=== PATIENT | female | born 1965 | race Hispanic/Latino ===

== ENCOUNTER 2017-01-29 17:13 | Emergency (ER) | payer OTHER ==
[~2017-01-29] VITALS: Ht 162.6 cm; Wt 104.5 kg
[~2017-01-29 17:13] MED LIST: ALBUTEROL17 G1 IH; ATENOLOL25 MG PO; FLEXERIL10 MG PO; FLOVENT DISKUS1 DISK IH; LEVEMIR100 UNIT/2 SC; LO-DOSE ASPIRIN81 M1 PO; LOSARTAN POTAS100 MG PO; NAPROSYN500 MG PO; PRILOSEC40 MG PO; PROAIR HFA8.5 GM IH; PROVENTIL,200 INHALA IH; ULTRACET1 TABLET PO; VALIUM5 MG PO; XANAX0.5 MG PO
[2017-01-29 18:14] LABS: MCH 26.2 PG (29.0-34.0); MCHC 32.2 G/DL (30.0-36.0); MCV 81.3 FL (83-99); MEAN PLAT.VOLUME 12.2 uM^3 (9.5-12.4); PLATELET COUNT 194 K/uL (156-360); RBC DIS.WIDTH-CV 13.8 % (11.8-14.6); RBC DIS.WIDTH-SD 41.4 % (39-53); RED BLOOD COUNT 4.43 M/uL (3.80-5.20); WHITE BLOOD COUNT 7.8 K/uL (4.1-10.2)
[2017-01-29 18:21] LABS: CHLORIDE 107 mEq/L (99-109); POTASSIUM 4.4 mEq/L (3.7-5.4); SODIUM 140 mEq/L (136-147)
[2017-01-29 18:22] LABS: GLUCOSE 112 mg/dL (70-99)
[2017-01-29 18:24] LABS: ANION GAP 7 MEQ/L (2-14)
[2017-01-29 18:26] LABS: GFR ESTIMATE (CALCULATED) > 59 mL/min/
[2017-01-29 18:27] LABS: UREA NITROGEN (BUN) 16 mg/dL (9-23)
[2017-01-29 18:32] LABS: TROP-I INTERPRETATION NEGATIVE; TROPONIN-I < 0.01 ng/mL (0.0-0.30)
[2017-01-29] MEDS ORDERED: TENORMIN25 MG PO (21:08)
[2017-01-29] MEDS ORDERED: HUMALOG MI100 UNIT/1 SC (21:08)
[2017-01-29 21:11] LABS: TROP-I INTERPRETATION NEGATIVE; TROPONIN-I < 0.01 ng/mL (0.0-0.30)
[2017-01-29 22:12] VITALS: BP 152/83
== END 2017-01-29 22:24 | disposition left against medical advice (07) ==
LOC: EME 17:13
PROVIDERS: Physician Assistant Medical
DX: R07.89 Other chest pain (principal); I10 Essential (primary) hypertension; E11.9 Type 2 diabetes mellitus without complications; J45.909 Unspecified asthma, uncomplicated; Z87.442 Personal history of urinary calculi; Z91.040 Latex allergy status; Z88.8 Allergy status to other drugs, medicaments and biological substances; Z88.5 Allergy status to narcotic agent; Z88.6 Allergy status to analgesic agent
CPT/HCPCS: 71020; 80048; 84484; 85027; 93005; 99281; 99284

== ENCOUNTER → 2017-02-17 | Day surgery (SDC) | payer OTHER ==
[~2017-02-17] VITALS: Ht 162.6 cm; Wt 103.0 kg
[~2017-02-17] MED LIST changes: +HUMALOG MI100 UNIT/1 SC; +LO-DOSE ASPIRIN81 M2 PO; +PRAVACHOL20 MG PO; +PREVACID15 MG PO; +TENORMIN25 MG PO; +VITAMIN C1000 MG PO
[2017-02-17 10:37] LABS: POINT-OF-CARE METER ID UU13113696
[2017-02-17 10:46] LABS: POINT-OF-CARE METER ID UU13113696
[2017-02-17 11:09] LABS: POINT-OF-CARE METER ID UU13113696
[2017-02-17 13:26] LABS: POINT-OF-CARE METER ID UU13113819
== END | disposition home or self-care (01) ==
LOC: CATH 09:42
PROVIDERS: Internal Medicine Cardiovascular Disease
PROC: B2151ZZ Fluoroscopy of Left Heart using Low Osmolar Contrast (ICD-10-PCS; principal; 2017-02-17)
PROC: B2111ZZ Fluoroscopy of Multiple Coronary Arteries using Low Osmolar Contrast (ICD-10-PCS; principal; 2017-02-17)
PROC: 4A023N7 Measurement of Cardiac Sampling and Pressure, Left Heart, Percutaneous Approach (ICD-10-PCS; principal; 2017-02-17)
DX: I25.10 Atherosclerotic heart disease of native coronary artery without angina pectoris (principal); I10 Essential (primary) hypertension; E11.9 Type 2 diabetes mellitus without complications; I44.7 Left bundle-branch block, unspecified; E66.01 Morbid (severe) obesity due to excess calories; Z68.41 Body mass index [BMI] 40.0-44.9, adult; Z79.4 Long term (current) use of insulin; Z82.49 Family history of ischemic heart disease and other diseases of the circulatory system
CPT/HCPCS: 82948; C1769; C1887; J1644; J2250; J3010

== ENCOUNTER 2017-04-04 14:20 | Emergency (ER) | payer OTHER ==
[~2017-04-04] VITALS: Ht 162.6 cm; Wt 101.0 kg
[2017-04-04] MEDS ORDERED: VALIUM5 MG PO (19:30)
[2017-04-04] MEDS ORDERED: INDOCIN50 MG PO (19:30)
[2017-04-04] MEDS ORDERED: ULTRACET1 TABLET PO (19:33)
[2017-04-04 20:25] VITALS: BP 140/82
== END 2017-04-04 20:25 | disposition home or self-care (01) ==
LOC: EME 14:20
DX: S16.1XXA Strain of muscle, fascia and tendon at neck level, initial encounter (principal); S46.001A Unspecified injury of muscle(s) and tendon(s) of the rotator cuff of right shoulder, initial encounter; S46.211A Strain of muscle, fascia and tendon of other parts of biceps, right arm, initial encounter; M54.12 Radiculopathy, cervical region; X58.XXXA Exposure to other specified factors, initial encounter; Y93.E5 Activity, floor mopping and cleaning; I44.7 Left bundle-branch block, unspecified; I10 Essential (primary) hypertension; E78.5 Hyperlipidemia, unspecified; J45.909 Unspecified asthma, uncomplicated; E11.9 Type 2 diabetes mellitus without complications; Z79.4 Long term (current) use of insulin; Z79.82 Long term (current) use of aspirin
CPT/HCPCS: 93005; 93971; 99281; 99284; J1885; J3010

== ENCOUNTER 2017-05-28 22:17 | Emergency (ER) | payer OTHER ==
[~2017-05-28] VITALS: Ht 162.6 cm; Wt 106.0 kg
[~2017-05-28 22:17] MED LIST changes: +INDOCIN50 MG PO
[2017-05-28 23:02] LABS: HEMATOCRIT 34.2 % (36.0-46.0); MCH 26.6 PG (29.0-34.0); MCHC 32.5 G/DL (30.0-36.0); MCV 81.8 FL (83-99); MEAN PLAT.VOLUME 12.1 uM^3 (9.5-12.4); PLATELET COUNT 181 K/uL (156-360); RBC DIS.WIDTH-CV 14.2 % (11.8-14.6); RBC DIS.WIDTH-SD 42.3 % (39-53); RED BLOOD COUNT 4.18 M/uL (3.80-5.20); WHITE BLOOD COUNT 9.7 K/uL (4.1-10.2)
[2017-05-28 23:11] LABS: CHLORIDE 107 mEq/L (99-109); POTASSIUM 3.6 mEq/L (3.7-5.4); SODIUM 140 mEq/L (136-147)
[2017-05-28 23:13] LABS: GLUCOSE 159 mg/dL (70-99)
[2017-05-28 23:14] LABS: ANION GAP 9 MEQ/L (2-14)
[2017-05-28 23:17] LABS: GFR ESTIMATE (CALCULATED) > 59 mL/min/
[2017-05-28 23:18] LABS: UREA NITROGEN (BUN) 20 mg/dL (9-23)
[2017-05-28 23:25] LABS: TROP-I INTERPRETATION NEGATIVE; TROPONIN-I < 0.01 ng/mL (0.0-0.30)
[2017-05-28 23:47] LABS: D-DIMER ELISA < 150.00 ng/mLDDU (<230)
[2017-05-29] MEDS ORDERED: NAPROSYN500 MG PO (00:24)
[2017-05-29] MEDS ORDERED: PROVENTIL HFA6.7 GM IH (00:24)
[2017-05-29 00:42] VITALS: BP 180/76
== END 2017-05-29 00:43 | disposition home or self-care (01) ==
LOC: RME 22:17 → EME 22:17 → RME 05-29 00:43
PROVIDERS: Emergency Medicine
DX: R07.9 Chest pain, unspecified (principal); R09.1 Pleurisy; M54.9 Dorsalgia, unspecified; J45.909 Unspecified asthma, uncomplicated; E11.9 Type 2 diabetes mellitus without complications; I10 Essential (primary) hypertension; Z87.442 Personal history of urinary calculi; Z79.4 Long term (current) use of insulin; Z79.82 Long term (current) use of aspirin
CPT/HCPCS: 71020; 80048; 84484; 85027; 85379; 93005; 94640; 99281; 99284

== ENCOUNTER 2017-07-09 03:52 | Emergency (ER) | payer OTHER ==
[~2017-07-09] VITALS: Ht 162.6 cm; Wt 108.0 kg
[~2017-07-09 03:52] MED LIST changes: +PROVENTIL HFA6.7 GM IH
[2017-07-09 04:49] LABS: HEMATOCRIT 34.7 % (36.0-46.0); MCH 27.1 PG (29.0-34.0); MCHC 33.1 G/DL (30.0-36.0); MCV 81.6 FL (83-99); MEAN PLAT.VOLUME 12.2 uM^3 (9.5-12.4); PLATELET COUNT 156 K/uL (156-360); RBC DIS.WIDTH-CV 13.8 % (11.8-14.6); RBC DIS.WIDTH-SD 41.1 % (39-53); RED BLOOD COUNT 4.25 M/uL (3.80-5.20); WHITE BLOOD COUNT 10.3 K/uL (4.1-10.2)
[2017-07-09 04:58] LABS: CHLORIDE 106 mEq/L (99-109); D-DIMER ELISA < 150.00 ng/mLDDU (<230); POTASSIUM 3.6 mEq/L (3.7-5.4); SODIUM 136 mEq/L (136-147)
[2017-07-09 04:59] LABS: GLUCOSE 143 mg/dL (70-99)
[2017-07-09 05:01] LABS: ANION GAP 9 MEQ/L (2-14)
[2017-07-09 05:03] LABS: GFR ESTIMATE (CALCULATED) > 59 mL/min/
[2017-07-09 05:04] LABS: UREA NITROGEN (BUN) 15 mg/dL (9-23)
[2017-07-09 05:50] VITALS: BP 147/75
== END 2017-07-09 06:34 | disposition home or self-care (01) ==
LOC: EME 03:52
PROVIDERS: Emergency Medicine
DX: R25.2 Cramp and spasm (principal); E83.51 Hypocalcemia; M79.604 Pain in right leg; I10 Essential (primary) hypertension; J45.909 Unspecified asthma, uncomplicated; E11.9 Type 2 diabetes mellitus without complications; Z79.4 Long term (current) use of insulin; Z79.82 Long term (current) use of aspirin
CPT/HCPCS: 80048; 85027; 85379; 99281; 99285; J7030

== ENCOUNTER 2017-10-08 21:46 | Emergency (ER) | payer OTHER ==
[~2017-10-08] VITALS: Ht 162.6 cm; Wt 107.8 kg
[2017-10-08 22:38] LABS: HEMATOCRIT 32.5 % (36.0-46.0); HEMOGLOBIN 10.7 G/DL (11.9-15.5); MCH 26.5 PG (29.0-34.0); MCHC 32.9 G/DL (30.0-36.0); MCV 80.4 FL (83-99); PLATELET COUNT 161 K/uL (156-360); RBC DIS.WIDTH-CV 13.9 % (11.8-14.6); RBC DIS.WIDTH-SD 40.6 % (39-53); RED BLOOD COUNT 4.04 M/uL (3.80-5.20)
[2017-10-08 22:47] LABS: CHLORIDE 106 mEq/L (99-109)
[2017-10-08 22:48] LABS: POTASSIUM 3.6 mEq/L (3.7-5.4); SODIUM 141 mEq/L (136-147)
[2017-10-08 22:49] LABS: GLUCOSE 153 mg/dL (70-99)
[2017-10-08 22:53] LABS: CREATININE 1.3 mg/dL (0.6-1.3); GFR ESTIMATE (CALCULATED) 46 mL/min/
[2017-10-08 22:54] LABS: UREA NITROGEN (BUN) 31 mg/dL (9-23)
[2017-10-08 22:59] LABS: TROP-I INTERPRETATION NEGATIVE; TROPONIN-I 0.01 ng/mL (0.0-0.30)
[2017-10-08 23:40] LABS: D-DIMER ELISA < 150.00 ng/mLDDU (<230)
[2017-10-09] MEDS ORDERED: BACTRIM,SEPT1 TABLET PO (00:26)
[2017-10-09 00:36] VITALS: BP 136/65
== END 2017-10-09 00:36 | disposition home or self-care (01) ==
LOC: EME 21:46
PROVIDERS: Emergency Medicine
DX: L03.114 Cellulitis of left upper limb (principal); W57.XXXA Bitten or stung by nonvenomous insect and other nonvenomous arthropods, initial encounter; E11.9 Type 2 diabetes mellitus without complications; I10 Essential (primary) hypertension; J45.909 Unspecified asthma, uncomplicated; Z87.442 Personal history of urinary calculi; Z90.49 Acquired absence of other specified parts of digestive tract; Z98.51 Tubal ligation status; Z91.040 Latex allergy status; Z88.5 Allergy status to narcotic agent; Z88.6 Allergy status to analgesic agent; Z88.8 Allergy status to other drugs, medicaments and biological substances
CPT/HCPCS: 71046; 80048; 84484; 85027; 85379; 93005; 99281; 99283

== ENCOUNTER 2017-11-23 19:16 | Emergency (ER) | payer OTHER ==
[~2017-11-23] VITALS: Ht 162.6 cm; Wt 111.3 kg
[~2017-11-23 19:16] MED LIST changes: +BACTRIM,SEPT1 TABLET PO
[2017-11-23 19:58] LABS: HEMATOCRIT 33.7 % (36.0-46.0); HEMOGLOBIN 11.2 G/DL (11.9-15.5); MCH 26.8 PG (29.0-34.0); MCHC 33.2 G/DL (30.0-36.0); MCV 80.6 FL (83-99); PLATELET COUNT 152 K/uL (156-360); RBC DIS.WIDTH-CV 14.5 % (11.8-14.6); RBC DIS.WIDTH-SD 42.5 % (39-53); RED BLOOD COUNT 4.18 M/uL (3.80-5.20); WHITE BLOOD COUNT 7.8 K/uL (4.1-10.2)
[2017-11-23 20:08] LABS: ALBUMIN 3.6 g/dL (3.2-4.8); CHLORIDE 105 mEq/L (99-109); POTASSIUM 3.6 mEq/L (3.7-5.4); SODIUM 137 mEq/L (136-147)
[2017-11-23 20:10] LABS: GLUCOSE 242 mg/dL (70-99)
[2017-11-23 20:12] LABS: TOTAL BILIRUBIN 0.4 mg/dL (0.0-1.0)
[2017-11-23 20:14] LABS: ALKALINE PHOSPHATASE 82 IU/L (3-129); CREATININE 1.9 mg/dL (0.6-1.3); GFR ESTIMATE (CALCULATED) 30 mL/min/
[2017-11-23 20:15] LABS: UREA NITROGEN (BUN) 34 mg/dL (9-23)
[2017-11-23 20:16] LABS: AST (GOT) 29 IU/L (2-34)
[2017-11-23 20:17] LABS: ALT (GPT) 34 IU/L (3-49)
[2017-11-23 20:28] LABS: QUANTITATIVE HCG < 4.0 MIU/ML
[2017-11-23 21:50] LABS: APPEARANCE SL.HAZY ((CLEAR)); BILIRUBIN NEGATIVE; BLOOD NEGATIVE; COLOR YELLOW ((YELLOW)); GLUCOSE (STRIP) 50; KETONES NEGATIVE; LEUKOCYTES NEGATIVE; NITRITE NEGATIVE; PROTEIN (STRIP) NEGATIVE; UROBILINOGEN 0.2 MG/DL (0.2-1.0)
[2017-11-23 22:18] LABS: BACTERIA NONE SEEN /HPF; EPITHELIAL CELLS RARE /HPF; HYALINE CASTS 0-5 /LPF; MUCUS TRACE /LPF; UCUL ADDED? NO; WHITE BLOOD CELLS 0-5 /HPF (0-5)
[2017-11-23 23:59] LABS: D-DIMER ELISA < 150.00 ng/mLDDU (<230)
[2017-11-24 01:21] LABS: TROP-I INTERPRETATION NEGATIVE; TROPONIN-I < 0.01 ng/mL (0.0-0.30)
[2017-11-24] MEDS ORDERED: MOTRIN600 MG PO (03:02)
[2017-11-24] MEDS ORDERED: MEDROL DOSEPAK4 MG PO (03:02)
[2017-11-24] MEDS ORDERED: KEFLEX500 MG PO ×2 (03:06→03:45)
[2017-11-24 03:57] VITALS: BP 149/78
== END 2017-11-24 04:05 | disposition left against medical advice (07) ==
LOC: EME 19:16
PROVIDERS: Physician Assistant
DX: M54.6 Pain in thoracic spine (principal); R09.1 Pleurisy; L03.012 Cellulitis of left finger; N17.9 Acute kidney failure, unspecified; E11.9 Type 2 diabetes mellitus without complications; J45.909 Unspecified asthma, uncomplicated; I10 Essential (primary) hypertension; Z87.442 Personal history of urinary calculi; Z90.49 Acquired absence of other specified parts of digestive tract; Z79.4 Long term (current) use of insulin; Z79.82 Long term (current) use of aspirin; Z91.040 Latex allergy status; Z88.5 Allergy status to narcotic agent; Z88.6 Allergy status to analgesic agent; Z88.8 Allergy status to other drugs, medicaments and biological substances
CPT/HCPCS: 71046; 74176; 80048; 80053; 81003; 84484; 84702; 85027; 85379; 87502; 93005; 99281; 99285; J7030